=== PATIENT | male | born 1955 | race Caucasian/White ===

== ENCOUNTER 2022-01-11 00:56 | Day surgery (SDC) | payer MEDICARE, SELFPAY ==
[2022-01-03 14:32] VITALS: BMI 30.8
[2022-01-11 07:02] VITALS: BP 140/80; PULSE 93; RESP 20; TEMP 36.8; O2SAT 95
[2022-01-11] MEDS: LACTATED RINGERS 1,000 ML 150 ML IV CONT (07:06)
--- NOTE | 2022-01-11 07:23 | P.CONGI_ITS ---
Assessment and Plan Assessment and plan (1) Encounter for screening colonoscopy: Code(s): Z12.11 - Encounter for screening for malignant neoplasm of colon Status: Acute Assessment and Plan: Patient presents today for screening colonoscopy. He appears to be at average risk for colon polyps. GI Consult Note Consult date/time: 01/11/22 07:23 Reason for consult: Neoplasia screening. HPI: Abrahan Suarez is a 66 year old male Presents for screening colonoscopy on referral from primary care service. Patient reports his current weight appetite and bowel movements are normal. He denies abdominal pain. He has had no bleeding. Family history is noncontributory patient reports previous colonoscopy at least 12 years prior to this. Patient presents today for neoplasia screening. Review of Systems Review of Systems: Review of systems is noncontributory. PMFSH Social History Social History Smoking packs per day: 2 Smoking cigarettes per day: 40.0 Years smoked: 50 Smoking pack-years: 100.00 Smoking status: Former smoker Tobacco type: cigarettes Alcohol intake: former Substance use: never Substance use type: does not use Living arrangements: with family Spiritual care concerns: No Meds Home Medications and Allergies Home Medications Medication Instructions Recorded Confirmed Type apixaban 5 mg tablet (Eliquis) 5 tablet PO BID 01/03/22 01/03/22 History atorvastatin 40 mg tablet 40 tablet PO DAILY 01/03/22 01/03/22 History empagliflozin 10 mg tablet 10 mg PO DAILY 01/03/22 01/03/22 History (Jardiance) ferrous sulfate 325 mg (65 mg 325 mg PO EVERY OTHER DAY 01/03/22 01/03/22 History iron) tablet metoprolol succinate 25 mg 1 tablet PO BID 01/03/22 01/03/22 History tablet,extended release 24 hr pantoprazole 40 mg tablet,delayed 1 tablet PO DAILY 01/03/22 01/03/22 History release prasugrel 10 mg tablet 10 tablet PO DAILY 01/03/22 01/03/22 History sacubitril 24 mg-valsartan 26 mg 2 tablet PO BID 01/03/22 01/03/22 History tablet (Entresto) spironolactone 25 mg tablet 1 tablet PO DAILY 01/03/22 01/03/22 History Allergies Allergy/AdvReac Type Severity Reaction Status Date / Time morphine AdvReac Intermediate Nausea and Verified 01/11/22 07:00 Vomiting Penicillins AdvReac Intermediate Nausea and Verified 01/11/22 07:00 Vomiting Vital Signs Vital Signs - 24 hr 01/11/22 07:02 Temperature 98.2 F Pulse Rate 93 Respiratory Rate 20 Blood Pressure 140/80 Pulse Oximetry 95 Oxygen Delivery Room Air Exam Narrative: Physical exam reveals patient to be alert. Vital signs stable. HEENT exam is unremarkable. Patient is anicteric. Lungs are clear to auscultation and percussion. Heart is without murmur or extra sounds. Abdominal exam bowel sounds are present soft nontender with no hepato splenomegaly. Digital external rectal exam is normal.
--- NOTE | 2022-01-11 07:54 | P.PNAN_ITS ---
Anes - Initial Pre Proc Eval Procedure: Operation Date: 01/11/22 08:30 Proposed Procedures p Screening Colonoscopy - Ayad Rivera MD Date/Time: 01/11/22 07:54 Surgeon: Ayad Rivera MD Pre Op Diagnosis: neoplasm screening Patient Data Age: 66 Gender: M Height: 1.93 m Weight: 114.5 kg Last Vital Signs Temp 98.2 F 01/11/22 07:02 Pulse 93 01/11/22 07:02 Resp 20 01/11/22 07:02 BP 140/80 01/11/22 07:02 Pulse Ox 95 01/11/22 07:02 O2 Del Method Room Air 01/11/22 07:02 Allergies Allergy/AdvReac Type Severity Reaction Status Date / Time morphine AdvReac Intermediate Nausea and Verified 01/11/22 07:00 Vomiting Penicillins AdvReac Intermediate Nausea and Verified 01/11/22 07:00 Vomiting Home Medications Medication Instructions Recorded Confirmed Type apixaban 5 mg tablet (Eliquis) 5 tablet PO BID 01/03/22 01/03/22 History atorvastatin 40 mg tablet 40 tablet PO DAILY 01/03/22 01/03/22 History empagliflozin 10 mg tablet 10 mg PO DAILY 01/03/22 01/03/22 History (Jardiance) ferrous sulfate 325 mg (65 mg 325 mg PO EVERY OTHER DAY 01/03/22 01/03/22 History iron) tablet metoprolol succinate 25 mg 1 tablet PO BID 01/03/22 01/03/22 History tablet,extended release 24 hr pantoprazole 40 mg tablet,delayed 1 tablet PO DAILY 01/03/22 01/03/22 History release prasugrel 10 mg tablet 10 tablet PO DAILY 01/03/22 01/03/22 History sacubitril 24 mg-valsartan 26 mg 2 tablet PO BID 01/03/22 01/03/22 History tablet (Entresto) spironolactone 25 mg tablet 1 tablet PO DAILY 01/03/22 01/03/22 History Patient hx anesthesia problems: none Family hx anesthesia problems: none Results Review: All pre-operative results and documents have been reviewed as part of the pre- operative evaluation. PMFSH Social History Social History Smoking packs per day: 2 Smoking cigarettes per day: 40.0 Years smoked: 50 Smoking pack-years: 100.00 Smoking status: Former smoker Tobacco type: cigarettes Alcohol intake: former Substance use: never Substance use type: does not use Living arrangements: with family Spiritual care concerns: No Anes - Eval Final PreProcedure Day of Procedure 01/11/22 07:54 Patient weight: obese Heart: regular rate and rhythm Lungs: clear to auscultation Airway: Mallampati scale class III Neurological: alert and oriented Last oral intake: >/= 8 hours ASA classification: III Emergent: no Anesthetic plan: proceed Anesthesia type and monitoring: general GIVS and standard monitoring Results Review: All pre-operative results and documents have been reviewed as part of the pre- operative evaluation. Informed Consent: The patient's anesthetic plan and its attendant risks and benefits were discussed with the patient/family/POA. Questions were solicited and answers provided to the satisfaction of the patient/family/POA.
[2022-01-11 08:54] VITALS: BP 117/62; PULSE 74; RESP 22; O2SAT 95
[2022-01-11 09:04] VITALS: BP 124/73; PULSE 68; RESP 20; O2SAT 95
[2022-01-11 09:14] VITALS: BP 136/81; PULSE 65; RESP 16; O2SAT 96
== END 2022-01-11 09:23 | disposition home or self-care (01) ==
PROVIDERS: PCP Family Medicine; Visit Provider Internal Medicine Gastroenterology
PROC: 0DJD8ZZ Inspection of Lower Intestinal Tract, Via Natural or Artificial Opening Endoscopic (ICD-10-PCS; CPT 45378; principal; 2022-01-11 08:30)
DX: Z12.11 Encounter for screening for malignant neoplasm of colon (principal); D12.2 Benign neoplasm of ascending colon; D12.3 Benign neoplasm of transverse colon; D12.4 Benign neoplasm of descending colon; D12.5 Benign neoplasm of sigmoid colon; K57.30 Diverticulosis of large intestine without perforation or abscess without bleeding; K64.8 Other hemorrhoids; Z87.891 Personal history of nicotine dependence; E66.9 Obesity, unspecified; Z68.30 Body mass index [BMI] 30.0-30.9, adult
CPT/HCPCS: 45385; 88305; J2001; J2704; J7120

== ENCOUNTER 2022-05-17 00:57 | Emergency (ER) | payer MEDICARE, SELFPAY ==
[2022-05-17 01:10] VITALS: BP 157/85; PULSE 97; RESP 19; TEMP 36.4; O2SAT 96
--- NOTE | 2022-05-17 01:37 | PC.NURSE ---
Pt ambulatory to intake desk, states I'm just going to go to [facility]. I'll be here all night till morning . Amb with steady gait to exit with spouse.
== END 2022-05-17 01:21 | disposition left against medical advice (07) ==
LOC: ANHED 01:43
PROVIDERS: PCP Family Medicine
DX: R31.9 Hematuria, unspecified (principal)
CPT/HCPCS: 99199

== ENCOUNTER → 2022-07-05 16:20 | Outpatient (CLI) | payer MEDICARE, SELFPAY ==
--- NOTE | ~2022-07-05 | MR_ITS ---
EXAMINATION: MR abdomen wo con DATE: 07/05/2022 17:19 INDICATION: Gross hematuria. TECHNIQUE: Magnetic resonance imaging (MRI) of the abdomen was performed without intravenous contrast . Sequences included coronal T2-weighted SS-FSE, coronal and axial FS 2D-FIESTA, axial STIR FSE, axi al T2-weighted SS-FSE, axial T2-weighted FS SS-FSE, axial diffusion-weighted SE, axial dual-echo T1-w eighted FSPGR, and axial and coronal T1-weighted LAVA. COMPARISON: None. FINDINGS: Heart size is normal. No pericardial or pleural effusion. Diffuse hepatic steatosis. Well-defined 1.4 cm T2 hyperintense lesion in segment 2A of the liver which demonstrates less than simple fluid signa l intensity most likely either a proteinaceous cyst or hemangioma. Susceptibility artifact associated with likely cholecystectomy clips at the empty gallbladder fossa. Spleen, pancreas and right adrenal gland are normal. 2.2 cm left adrenal nodule without definitive signal dropout on opposed phase imag ing and this remains indeterminate. Well-defined T2 fluid signal intensity likely renal cysts measuri ng 7 mm in the interpolar region of the right kidney and 3 mm interpolar region of the left kidney. R egion of the right kidney and 3 mm at the interpolar region of the left kidney. There is a complex 10 mm exophytic cyst at the anterior interpolar region of the left kidney which is predominantly of T2 fluid signal intensity with posterior layering high T1, low T2 signal consistent with layering blood, protein or milk of calcium. No other suspicious renal lesions identified. No hydronephrosis. Extensi ve colonic diverticulosis without adjacent inflammatory stranding to suggest diverticulitis. No bowel obstruction. Bladder appears unremarkable on the coronal images. No pathologically enlarged abdomina l lymphadenopathy. Metallic magnetic field artifact such with bilateral vertical rajan and pedicle scre w fixation at L4-S1. Bone marrow signal is normal throughout. IMPRESSION: 1. Couple small simple appearing bilateral subcentimeter renal cysts and 10 mm likely complex exophyt ic right renal cyst with dependently layering blood, proteinaceous fluid or milk of calcium. No other suspicious renal lesions identified. Is unclear whether the cysts correspond to reported lesion iden tified on prior outside imaging and would recommend correlation with the prior imaging. 2. Indeterminate 2.2 cm left adrenal nodule, statistically most likely to represent an adenoma and 1. 4 cm well-defined T2 hyperintense left hepatic lobe lesion statistically most likely to represent a c yst or hemangioma. For both lesions would recommend correlation with prior outside imaging. 3. Extensive diverticulosis. Reviewed, dictated and finalized at location A. OPERATOR IMPRESSION: 1. Couple small simple appearing bilateral subcentimeter renal cysts and 10 mm likely complex exophytic right renal cyst with dependently layering blood, prot einaceous fluid or milk of calcium. No other suspicious renal lesions identifie d. Is unclear whether the cysts correspond to reported lesion identified on eulogio or outside imaging and would recommend correlation with the prior imaging. 2. Indeterminate 2.2 cm left adrenal nodule, statistically most likely to repre sent an adenoma and 1.4 cm well-defined T2 hyperintense left hepatic lobe lesio n statistically most likely to represent a cyst or hemangioma. For both lesions would recommend correlation with prior outside imaging. 3. Extensive diverticulosis.
== END ==
PROVIDERS: PCP Family Medicine; Visit Provider Urology
DX: R31.0 Gross hematuria (principal); K57.30 Diverticulosis of large intestine without perforation or abscess without bleeding; D35.02 Benign neoplasm of left adrenal gland
CPT/HCPCS: 74181

== ENCOUNTER 2024-01-28 13:51 | Outpatient (CLI) | payer MEDICARE, SELFPAY ==
--- NOTE | ~2024-01-28 | XR_ITS ---
EXAMINATION: XR chest 2V 01/28/2024 14:02 INDICATION: Dyspnea PROCEDURE: 2 view chest COMPARISON: No prior studies for comparison. FINDINGS: The lungs are clear. The cardiomediastinal silhouette is within normal limits. There are no pleural effusions. There is no pneumothorax suspected. IMPRESSION: 1: NO ACUTE CARDIOPULMONARY DISEASE. Reviewed, dictated and finalized at location B.
== END 2024-01-28 13:52 ==
LOC: MICIMG 13:53
PROVIDERS: PCP Family Medicine; Visit Provider Family Medicine
DX: R06.09 Other forms of dyspnea (principal); M89.8X1 Other specified disorders of bone, shoulder
CPT/HCPCS: 71046

== ENCOUNTER 2024-01-30 10:54 | Outpatient (CLI) | payer MEDICARE, SELFPAY ==
--- NOTE | ~2024-01-30 | XR_ITS ---
EXAMINATION: XR clavicle RT DATE: 01/30/2024 11:09 INDICATION: Right clavicle pain TECHNIQUE: AP and 10 degree cephalad angled AP views of the right clavicle were obtained. COMPARISON: none FINDINGS: Alignment is normal. No fracture. Severe right acromioclavicular osteoarthritis. Mild right glenohume ral osteoarthritis. Moderate lower cervical spondylosis with moderate lower cervical facet and uncove rtebral osteoarthritis. IMPRESSION: 1. Severe right acromioclavicular osteoarthritis. No acute osseous abnormality. Reviewed, dictated and finalized at location A.
== END 2024-01-30 10:55 ==
PROVIDERS: PCP Family Medicine; Visit Provider Family Medicine
DX: M89.8X1 Other specified disorders of bone, shoulder (principal); M19.011 Primary osteoarthritis, right shoulder
CPT/HCPCS: 73000

== ENCOUNTER 2024-02-18 10:20 | Outpatient (CLI) | payer MEDICARE, SELFPAY ==
--- NOTE | ~2024-02-18 | CT_ITS ---
CT Scan of the Chest without Contrast: Clinical Indication: Lung cancer screening, nicotine dependence Technique: Contiguous sections were acquired throughout the chest without intravenous contrast. Dose reduction technique was used on this scan by utilizing automated exposure control and iterative recon struction technique. The dose-length product (DLP) was 228.52 mGy-cm. Findings: There is no evidence of any significant mediastinal, hilar or axillary lymphadenopathy. Extensive cor onary artery calcifications are present. There is no evidence of pleural or pericardial effusion. Probable focal scarring and/or chronic pleural thickening at the left lower lobe region.. Mild upper lobe emphysema noted. Images through the upper abdomen reveal 2.3 cm left adrenal nodule, indeterminate. Impression: Lung RADS 2: Benign appearance. 12 month follow-up screening CT advised. 2.3 cm left adrenal nodule. By report, this is stable in size from prior MR dated 07/05/2022, therefo re compatible with a benign lesion. Reviewed, dictated and finalized at location . Impression: Lung RADS 2: Benign appearance. 12 month follow-up screening CT advised. 2.3 cm left adrenal nodule. By report, this is stable in size from prior MR nae ed 07/05/2022, therefore compatible with a benign lesion.
== END 2024-02-18 10:21 ==
LOC: MICIMG 10:21
PROVIDERS: PCP Family Medicine; Visit Provider Family Medicine
DX: Z12.2 Encounter for screening for malignant neoplasm of respiratory organs (principal); Z87.891 Personal history of nicotine dependence; D35.02 Benign neoplasm of left adrenal gland
CPT/HCPCS: 71271

== ENCOUNTER 2025-07-02 11:35 | Outpatient (CLI) | payer MEDICARE, SELFPAY ==
--- NOTE | ~2025-07-02 | US_ITS ---
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 TECHNIQUE: Renal ultrasound FINDINGS: Right kidney: 10.2 x 5.6 x 6.5 cm. No hydronephrosis or suspicious mass. A1.9 cm simple appearing cyst noted. Left kidney: 11.2 x 6.5 x 5.4 cm and appears normal. No discrete abnormality seen on limited images of the urinary bladder. IMPRESSION: 1.9 cm right renal cyst. Reviewed, dictated and finalized at location A. AL SPRAYER IMPRESSION: 1.9 cm right renal cyst.
== END 2025-07-02 11:36 | disposition home or self-care (01) ==
PROVIDERS: PCP Family Medicine; Visit Provider Urology
DX: D41.01 Neoplasm of uncertain behavior of right kidney (principal); N28.1 Cyst of kidney, acquired
CPT/HCPCS: 76770